=== PATIENT | male | born 2000 | race Caucasian/White ===

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

== ENCOUNTER 2020-03-06 22:35 | Emergency (ER) | payer OTHER ==
[~2020-03-06] VITALS: Ht 185.4 cm; Wt 79.4 kg
[2020-03-06 22:42] VITALS: BP 135/73
--- NOTE | 2020-03-06 22:45 | NUR ---
PT AMBUALTED TO BED 11 WITH STEADY GAIT.
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
--- NOTE | 2020-03-06 22:51 | NUR ---
ERMD AT BEDSIDE.
[2020-03-06] MEDS ORDERED: SILVER NITRATE APPLICATOR 1 EA SWAB TP ONE (23:10)
[2020-03-06 23:50] VITALS: BP 135/73
--- NOTE | 2020-03-06 23:50 | NUR ---
Patient discharged with v/s stable. Written and verbal after care instructions given and explained. Patient verbalized understanding. Ambulatory with steady gait. All questions addressed prior to discharge. Advised to follow up with PMD.
== END 2020-03-06 23:50 | disposition home or self-care (01) ==
LOC: MED 22:35
DX: S61.211A Laceration without foreign body of left index finger without damage to nail, initial encounter (principal); K21.9 Gastro-esophageal reflux disease without esophagitis; Z79.899 Other long term (current) drug therapy; W26.0XXA Contact with knife, initial encounter; Y93.89 Activity, other specified; Y92.89 Other specified places as the place of occurrence of the external cause; Y99.8 Other external cause status
CPT/HCPCS: 12001; 90471; 90715; 99283

== ENCOUNTER 2020-05-11 21:34 | Emergency (ER) | payer OTHER ==
[~2020-05-11] VITALS: Ht 190.5 cm; Wt 86.2 kg
[2020-05-11 21:40] VITALS: BP 129/90
--- NOTE | 2020-05-11 21:40 | NUR ---
TO [facility] AMBULATORY
--- NOTE | 2020-05-11 21:55 | NUR ---
SEEN AND EXAMINED BY DAYSI WITH ORDER, AND CARRIED OUT
[2020-05-11 22:32] VITALS: BP 122/87
--- NOTE | 2020-05-11 22:33 | NUR ---
PT SEEN AND EVALUATED BY DR MCGEE. NO NURSING INTERVENTIONS NEEDED.
== END 2020-05-11 22:33 | disposition home or self-care (01) ==
LOC: MED 21:34
DX: R00.2 Palpitations (principal); F41.9 Anxiety disorder, unspecified; K21.9 Gastro-esophageal reflux disease without esophagitis; Z79.899 Other long term (current) drug therapy
CPT/HCPCS: 71045; 93005; 99283

== ENCOUNTER 2020-05-12 17:27 | Emergency (ER) | payer OTHER ==
[~2020-05-12] VITALS: Ht 188 cm; Wt 81.2 kg
[2020-05-12 17:31] VITALS: BP 123/81
--- NOTE | 2020-05-12 17:45 | NUR ---
see complete assessment.
[2020-05-12 18:21] LABS: BASOPHILS # (AUTO) 0.3 K/uL (0.00-0.22); BASOPHILS % (AUTO) 3.4 % (0.0-2.0); EOSINOPHILS # (AUTO) 0.1 K/uL (0-0.4); EOSINOPHILS % (AUTO) 1.1 % (0.0-4.0); HEMATOCRIT 47.3 % (36-52); HEMOGLOBIN 16.1 g/dL (12.0-18.0); LYMPHOCYTES # (AUTO) 1.3 K/uL (2.0-11.5); LYMPHOCYTES % (AUTO) 15.1 % (20.5-51.1); MEAN CORPUSCULAR HEMOGLOBIN 30 pg (27-31); MEAN CORPUSCULAR HGB CONC 34 g/dL (33-37); MEAN CORPUSCULAR VOLUME 88.2 fL (80-94); MONOCYTES # (AUTO) 0.6 K/uL (0.8-1.0); NEUTROPHILS # (AUTO) 6.3 K/uL (1.8-7.7); NEUTROPHILS % (AUTO) 73.4 % (42.2-75.2); PLATELET COUNT (AUTO) 249 K/uL (140-450); RED BLOOD CELL COUNT(AUTO) 5.36 MIL/uL (4.20-6.10); RED CELL DISTRIBUTION WIDTH 12.7 % (11.6-13.7); WHITE BLOOD COUNT (AUTO) 8.6 K/uL (4.5-11.0)
[2020-05-12 18:29] LABS: APPEARANCE,URINE CLEAR (CLEAR); BILIRUBIN,URINE NEGATIVE (NEGATIVE); BLOOD, URINE NEGATIVE (NEGATIVE); COLOR,URINE YELLOW (YELLOW); LEUKOCYTE ESTERASE ,URINE NEGATIVE (NEGATIVE); NITRITE, URINE NEGATIVE (NEGATIVE); UGLUCOSE NEGATIVE (NEGATIVE)
[2020-05-12 18:37] LABS: BARBITURATE, URINE NEGATIVE ng/ml (NEG <=200); BENZODIAZEPINE, URINE NEGATIVE ng/mL (NEG <=200); CANNABINOID, URINE POSITIVE ng/mL (NEG <=50); COCAINE, URINE NEGATIVE ng/mL (NEG <=300); OPIATE, URINE NEGATIVE ng/mL (NEG <=2000); PHENCYCLIDINE SCREEN,URINE NEGATIVE ng/mL (NEG <=25)
[2020-05-12 18:46] LABS: ALBUMIN 5.4 g/dL (3.4-5.0); ANION GAP 15.1 (8-16); CARBON DIOXIDE 29.6 mmol/L (21-32); FREE T4 (FREE THYROXINE) 1.15 ng/dL (0.76-1.46); POTASSIUM 3.7 mmol/L (3.5-5.1); THYROID STIMULATING HORMONE 1.81 uIU/mL (0.34-3.74); TOTAL BILIRUBIN 2.4 mg/dL (0.0-1.0)
[2020-05-12 19:31] VITALS: BP 122/78
== END 2020-05-12 19:30 | disposition home or self-care (01) ==
LOC: MED 17:27
DX: R00.2 Palpitations (principal); R20.2 Paresthesia of skin; F43.9 Reaction to severe stress, unspecified; K21.9 Gastro-esophageal reflux disease without esophagitis; F12.90 Cannabis use, unspecified, uncomplicated; Z79.899 Other long term (current) drug therapy
CPT/HCPCS: 36415; 80053; 80305; 81003; 84439; 84443; 85025; 93005; 99283